=== PATIENT | male | born 1955 | race Caucasian/White ===

== ENCOUNTER → 2021-11-02 12:23 | Outpatient (CLI) | payer MEDICARE, SELFPAY ==
[2021-11-02 12:41] LABS: Add Manual Diff / Slide Review NO; Basophils Absolute Auto 200 /uL (0-100); Basophils Percent Auto 2.4 % (0-2); Eosinophils Absolute Auto 500 /uL (0-450); Hemoglobin 13.6 g/dL (13.5-17.5); Lymphocytes Absolute Auto 1400 /uL (1100-4500); Lymphocytes Percent Auto 15.9 % (25-40); Mean Corpuscular HGB Conc 33.3 % (30-36); Mean Corpuscular Volume 99.1 fL (80-100); Monocytes Absolute Auto 600 /uL (0-900); Monocytes Percent Auto 6.4 % (3-14); Neutrophils Absolute Auto 6400 /uL (1500-7000); Neutrophils Percent Auto 70.3 % (50-75); Platelet Count 405 X10^3/uL (150-400); Red Blood Cell Count 4.14 X10^6/uL (4.5-5.9); Red Cell Distribution Width 16.4 % (11.6-14.8)
[2021-11-02 13:17] LABS: HEMOLYSIS < 15 (0-50); Iron 67 ug/dL (49-181)
[2021-11-02 13:21] LABS: Alanine Aminotransferase 7 IU/L (<50); Albumin Globulin Ratio 1.3 (1.0-2.8); Alkaline Phosphatase 108 U/L (38-126); Aspartate Aminotransferase 22 IU/L (17-59); BUN Creatinine Ratio 15.5 (6-22); Bilirubin Total 0.6 mg/dL (0.2-1.3); Blood Urea Nitrogen 13 mg/dL (9-20); Calcium 8.8 mg/dL (8.4-10.2); Carbon Dioxide 27 mmol/L (22-32); Chloride 106 mmol/L (98-107); Cholesterol 166 mg/dL (140-199); Estimated Glomerular Filt Rate > 60 mL/min (>60); Globulin 3.2 g/dL (1.7-4.1); Glucose 87 mg/dL (80-110); HDL Cholesterol 47 mg/dL (40-60); HEMOLYSIS < 15 (0-50); LDL Cholesterol Calculated 105 mg/dL (<100); Sodium 138 mmol/L (137-145); Total Protein 7.2 g/dL (6.3-8.2); Triglycerides 69 mg/dL (35-150)
[2021-11-02 13:22] LABS: Potassium 4.1 mmol/L (3.4-5.1)
[2021-11-02 13:30] LABS: Percent Iron Saturation 24 % (20-50); Total Iron Binding Capacity 282 ug/dL (261-462); Transferrin 200 mg/dL (206-381)
[2021-11-02 13:48] LABS: Prostate Specific Antigen Scrn 1.74 ng/mL (0.1-4.0)
== END ==
PROVIDERS: PCP Internal Medicine; Referring Provider Internal Medicine; Visit Provider Internal Medicine
DX: I10 Essential (primary) hypertension (principal); Z12.5 Encounter for screening for malignant neoplasm of prostate; D64.9 Anemia, unspecified
CPT/HCPCS: 36415; 80053; 80061; 83540; 83550; 85025; G0103

== ENCOUNTER → 2022-12-20 12:15 | Outpatient (CLI) | payer MEDICARE, SELFPAY ==
[2022-12-20 12:57] LABS: Add Manual Diff / Slide Review NO; Basophils Absolute Auto 300 /uL (0-100); Basophils Percent Auto 3.3 % (0-2); Eosinophils Absolute Auto 400 /uL (0-450); Eosinophils Percent Auto 5.3 % (2-4); Hematocrit 44.2 % (41-53); Hemoglobin 14.7 g/dL (13.5-17.5); Lymphocytes Absolute Auto 1600 /uL (1100-4500); Lymphocytes Percent Auto 19.5 % (25-40); Mean Corpuscular HGB Conc 33.4 % (30-36); Mean Corpuscular Hemoglobin 34.3 PG (26-34); Mean Corpuscular Volume 102.9 fL (80-100); Monocytes Absolute Auto 500 /uL (0-900); Monocytes Percent Auto 6.5 % (3-14); Neutrophils Absolute Auto 5400 /uL (1500-7000); Neutrophils Percent Auto 65.4 % (50-75); Platelet Count 450 X10^3/uL (150-400); Red Cell Distribution Width 16.4 % (11.6-14.8); White Blood Cell Count 8.2 X10^3/uL (4.5-11.0)
[2022-12-20 13:18] LABS: Alanine Aminotransferase 10 IU/L (<50); Albumin 4.3 g/dL (3.5-5.0); Albumin Globulin Ratio 1.3 (1.0-2.8); Alkaline Phosphatase 87 U/L (38-126); Aspartate Aminotransferase 24 IU/L (17-59); BUN Creatinine Ratio 23.6 (6-22); Bilirubin Total 0.7 mg/dL (0.2-1.3); Blood Urea Nitrogen 17 mg/dL (9-20); Calcium 9.7 mg/dL (8.4-10.2); Carbon Dioxide 27 mmol/L (22-32); Chloride 102 mmol/L (98-107); Cholesterol 152 mg/dL (140-199); Estimated Glomerular Filt Rate > 60 mL/min (>60); Globulin 3.2 g/dL (1.7-4.1); Glucose 88 mg/dL (80-110); HDL Cholesterol 46 mg/dL (40-60); HEMOLYSIS < 15 (0-50); LDL Cholesterol Calculated 97 mg/dL (<100); Potassium 4.9 mmol/L (3.4-5.1); Sodium 137 mmol/L (137-145); Total Protein 7.5 g/dL (6.3-8.2); Triglycerides 47 mg/dL (35-150)
[2022-12-20 13:46] LABS: Prostate Specific Antigen Scrn 1.82 ng/mL (0.1-4.0); TSH w/ Reflex to FT4 1.13 uIU/mL (0.47-4.68)
== END ==
PROVIDERS: PCP Internal Medicine; Referring Provider Internal Medicine; Visit Provider Internal Medicine
DX: D64.9 Anemia, unspecified (principal); I10 Essential (primary) hypertension; Z12.5 Encounter for screening for malignant neoplasm of prostate; N40.1 Benign prostatic hyperplasia with lower urinary tract symptoms; N13.8 Other obstructive and reflux uropathy
CPT/HCPCS: 36415; 80053; 80061; 84443; 85025; G0103

== ENCOUNTER → 2023-07-22 16:19 | Outpatient (CLI) | payer MEDICARE, SELFPAY ==
[2023-07-22 18:21] LABS: Add Manual Diff / Slide Review NO; Basophils Absolute Auto 300 /uL (0-100); Basophils Percent Auto 3.2 % (0-2); Eosinophils Absolute Auto 600 /uL (0-450); Eosinophils Percent Auto 6.2 % (2-4); Hematocrit 47.7 % (41-53); Hemoglobin 15.8 g/dL (13.5-17.5); Lymphocytes Absolute Auto 1500 /uL (1100-4500); Lymphocytes Percent Auto 15.7 % (25-40); Mean Corpuscular HGB Conc 33.1 % (30-36); Mean Corpuscular Hemoglobin 33.4 PG (26-34); Monocytes Absolute Auto 400 /uL (0-900); Monocytes Percent Auto 4.1 % (3-14); Neutrophils Absolute Auto 6800 /uL (1500-7000); Neutrophils Percent Auto 70.8 % (50-75); Platelet Count 486 X10^3/uL (150-400); Red Blood Cell Count 4.72 X10^6/uL (4.5-5.9); Red Cell Distribution Width 15.8 % (11.6-14.8); White Blood Cell Count 9.6 X10^3/uL (4.5-11.0)
[2023-07-22 18:46] LABS: Erythrocyte Sedimentation Rate 4 MM/HR (0-15)
[2023-07-22 19:33] LABS: TSH w/ Reflex to FT4 1.28 uIU/mL (0.47-4.68)
[2023-07-22 19:41] LABS: Alanine Aminotransferase 9 IU/L (<50); Albumin 4.4 g/dL (3.5-5.0); Albumin Globulin Ratio 1.3 (1.0-2.8); Alkaline Phosphatase 98 U/L (38-126); Aspartate Aminotransferase 30 IU/L (17-59); BUN Creatinine Ratio 34.2 (6-22); Bilirubin Total 0.5 mg/dL (0.2-1.3); Blood Urea Nitrogen 25 mg/dL (9-20); C-Reactive Protein Quant < 0.5 mg/dL (<1.0); Calcium 9.4 mg/dL (8.4-10.2); Carbon Dioxide 27 mmol/L (22-32); Chloride 108 mmol/L (98-107); Estimated Glomerular Filt Rate > 60 mL/min (>60); Globulin 3.4 g/dL (1.7-4.1); Glucose 120 mg/dL (80-110); HEMOLYSIS < 15 (0-50); Potassium 3.9 mmol/L (3.4-5.1); Sodium 140 mmol/L (137-145); Total Protein 7.8 g/dL (6.3-8.2)
[2023-07-22 20:29] LABS: Vitamin B12 699 pg/mL (239-931)
[2023-07-22 21:41] LABS: Folate 8.3 ng/mL (2.76-20.0)
== END ==
PROVIDERS: PCP Internal Medicine; Referring Provider Internal Medicine; Visit Provider Internal Medicine
DX: I10 Essential (primary) hypertension (principal); J45.909 Unspecified asthma, uncomplicated; D64.9 Anemia, unspecified
CPT/HCPCS: 36415; 80053; 82607; 82746; 84443; 85025; 85651; 86140

== ENCOUNTER → 2024-05-10 16:32 | Outpatient (CLI) | payer MEDICARE, SELFPAY ==
[2024-05-10 17:10] LABS: Hematocrit 59.8 % (41-53); Hemoglobin 18.9 g/dL (13.5-17.5); Mean Corpuscular HGB Conc 31.6 % (30-36); Mean Corpuscular Hemoglobin 27.6 PG (26-34); Mean Corpuscular Volume 87.4 fL (80-100); Platelet Count 556 X10^3/uL (150-400); Red Blood Cell Count 6.85 X10^6/uL (4.5-5.9); White Blood Cell Count 13.2 X10^3/uL (4.5-11.0)
[2024-05-10 17:21] LABS: Add Manual Diff / Slide Review YES
[2024-05-10 17:30] LABS: Creatine Kinase 45 U/L (55-170); HEMOLYSIS 19 (0-50); Sodium 137 mmol/L (137-145)
[2024-05-10 17:31] LABS: Alanine Aminotransferase 10 IU/L (<50); Albumin 4.4 g/dL (3.5-5.0); Albumin Globulin Ratio 1.1 (1.0-2.8); Alkaline Phosphatase 108 U/L (38-126); Aspartate Aminotransferase 33 IU/L (17-59); BUN Creatinine Ratio 19.5 (6-22); Bilirubin Total 0.8 mg/dL (0.2-1.3); Blood Urea Nitrogen 17 mg/dL (9-20); C-Reactive Protein Quant < 0.5 mg/dL (<1.0); Calcium 9.2 mg/dL (8.4-10.2); Carbon Dioxide 27 mmol/L (22-32); Chloride 103 mmol/L (98-107); Estimated Glomerular Filt Rate > 60 mL/min (>60); Glucose 81 mg/dL (80-110); Total Protein 8.4 g/dL (6.3-8.2)
[2024-05-10 17:45] LABS: Anisocytosis 1+
[2024-05-10 17:48] LABS: Erythrocyte Sedimentation Rate 1 MM/HR (0-15)
[2024-05-10 17:59] LABS: TSH w/ Reflex to FT4 1.12 uIU/mL (0.47-4.68)
[2024-05-17 19:09] LABS: Percent Free Testosterone 3.09 % (1.50-4.20); Testosterone Free 13.02 ng/dL (5.00-21.00); Testosterone Total 421.3 ng/dL (264.0-916.0)
== END ==
PROVIDERS: PCP Internal Medicine; Referring Provider Internal Medicine; Visit Provider Internal Medicine
DX: I10 Essential (primary) hypertension (principal); R63.4 Abnormal weight loss; R53.83 Other fatigue; R53.1 Weakness; G72.9 Myopathy, unspecified
CPT/HCPCS: 36415; 80053; 82550; 84402; 84403; 84443; 85025; 85651; 86140

== ENCOUNTER 2024-06-06 09:30 | Emergency (ER) | payer MEDICARE, SELFPAY ==
[2024-06-06] VITALS (11 sets, daily range): BP systolic 147–180; BP diastolic 92–102; PULSE 76–90; RESP 16–31; TEMP 36.5; O2SAT 92–96; BMI 29.0
--- NOTE | 2024-06-06 10:00 | EKG_ITS ---
[id number] [place] [address] Test Date: 2024-06-06 Pat Name: Kris Byrnes Department: [facility] Room: Gender: Male Dietary Worker: FRANCESCA : 1955 Requested By: Order Number: [id number] Reading MD: Bill Chappell Measurements Intervals [place] Rate: 80 P: 9 NH: 178 QRS: -75 QRSD: 114 T: 34 QT: 418 QTc: 482 Interpretive Statements Sinus rhythm with premature atrial complexes Pulmonary disease pattern Left anterior fascicular block Minimal voltage criteria for LVH, may be normal variant ( [place] product ) Nonspecific ST abnormality Prolonged QT Electronically Signed On 06-07-2024 8:45:51 PDT by Bill Chappell
--- NOTE | 2024-06-06 10:31 | ED.URI ---
HPI - URI/Sore Throat General Chief Complaint: Upper Respiratory Symptoms Stated Complaint: SOB Time Seen by Provider: 06/06/24 10:29 History of Present Illness HPI Narrative: 69-year-old male history of asthma hypertension new diagnosis of polycythemia vera presenting to day with upper respiratory like symptoms. He reports that for the last to 5 days he has had some increasing shortness of breath. He has been using his nebulizer and inhaler 1 to 2 times a day does not really report significant relief. Reports he coughs every time he takes a deep breath. Feels like he is hot but does not actually have a temperature. No real sore throat. He was scheduled for his 1st phlebotomy treatment tomorrow. He denies any abdominal pain nausea vomiting or other symptoms Related Data Home Medications Medication Instructions Recorded Confirmed melatonin 5 mg tablet 10 mg PO BEDTIME 01/11/22 05/10/24 aspirin 81 mg tablet,delayed 81 mg PO DAILY 12/20/22 05/10/24 release (Radha Low Dose Aspirin) fluticasone propionate 50 1 spray intranasal DAILY PRN nasal 12/20/22 05/10/24 mcg/actuation nasal congestion spray,suspension (Aller-Erick) magnesium citrate 2 cap PO BEDTIME 05/10/24 05/10/24 Previous Rx's Medication Instructions Recorded albuterol sulfate 90 mcg/actuation 1 inh inhalation DAILY PRN 08/17/21 aerosol inhaler shortness of breath or wheezing #8.5 grams losartan 100 mg tablet 100 mg PO DAILY #90 tabs 09/18/23 spironolactone 25 mg tablet 25 mg PO DAILY #90 tabs 09/18/23 tamsulosin 0.4 mg capsule 0.8 mg (2 x 0.4 mg) PO DAILY #180 09/18/23 caps amlodipine 5 mg tablet 5 mg PO DAILY #90 tabs 05/10/24 albuterol sulfate 2.5 mg/0.5 mL 5 mg inhalation QID PRN shortness 06/06/24 solution for nebulization of breath or wheezing #30 ea amoxicillin 500 mg capsule 1,000 mg (2 x 500 mg) PO TID 5 06/06/24 days #30 caps azithromycin 250 mg tablet See Rx Instructions PO .COMPLEX #6 06/06/24 tabs prednisone 20 mg tablet 40 mg (2 x 20 mg) PO DAILY #10 tabs 06/06/24 Allergies Allergy/AdvReac Type Severity Reaction Status Date / Time No Known Drug Allergies Allergy Verified 05/10/24 16:03 Patient History Medical History (Updated 06/06/24 @ 14:02 by Diya Pena DO) Iron deficiency Anemia Hearing loss BPH w urinary obs/LUTS Asthma Essential hypertension Surgical History (Updated 08/17/21 @ 15:43 by Sukh Willard MD) H/O umbilical hernia repair Social History Smoking Status: Never smoker Smoking Status: Never smoker Exam Initial Vital Signs Initial Vital Signs: Vital Signs Pulse Rate 80 06/06/24 09:46 Blood Pressure 166/102 H 06/06/24 09:46 Pulse Oximetry 96 06/06/24 09:46 GENERAL: Alert 69-year-old male with flushed face HEENT: Head atraumatic,EOMI, pupils reactive, face symmetric, moist mucous membranes CARDIOVASCULAR: Regular rate and rhythm without murmurs, rubs or gallops. RESPIRATORY: No significant wheezing no real conversational dyspnea but he does have some shallow breaths ABDOMEN: Soft, nontender. Normoactive bowel sounds all 4 quadrants. No guarding or rebound. EXTREMITIES: Normal range of motion, no clubbing or edema. Neurovascularly intact NEUROLOGICAL: Alert and oriented x4.Normal gait and speech. Cranial nerves II through XII grossly intact. SKIN: Warm, dry, no laceration, no petechiae, no rashes or lesions. Course Orders Ordered: ED Orders 06/06/24 09:58 Covid-19 + FLU A/B + RSV - PCR Stat 06/06/24 10:00 EKG-12 Lead Stat 06/06/24 10:43 Chest [XR chest 2V] Stat 06/06/24 11:42 BNP [NT-proBNP (BNP-Adult 18+)] Stat CBC Auto Diff [Complete Blood Count AUTO DIFF] Stat CMP [Comprehensive Metabolic Panel] Stat Troponin & CK Cardiac Panel Stat 06/06/24 12:58 CT angio chest PE protocol Stat Discontinued Medications Albuterol/Ipratropium (Albuterol/Ipratropium 3 Ml Ampul) 3 ml INH NOW ONE Stop: 06/06/24 10:44 Last Admin: 06/06/24 10:51 Dose: 3 ml Documented By: WESTON Methylprednisolone (Methylprednisolone 125 Mg/2 Ml Vial) 125 mg IV NOW ONE Stop: 06/06/24 10:44 Last Admin: 06/06/24 11:31 Dose: 125 mg Documented By: DAMARIS Vital Signs Vital signs: Vital Signs - 8 hr 06/06/24 09:46 06/06/24 09:46 06/06/24 09:50 Temperature 97.7 F Pulse Rate 80 80 Respiratory Rate 16 Blood Pressure 166/102 H 166/102 H Pulse Oximetry 96 95 Oxygen Delivery Method Room Air Oxygen Flow Rate 06/06/24 10:00 06/06/24 10:00 06/06/24 10:30 Temperature Pulse Rate 77 78 Respiratory Rate 24 28 H Blood Pressure 147/93 H Pulse Oximetry 92 93 Oxygen Delivery Method Oxygen Flow Rate 06/06/24 10:30 06/06/24 10:51 06/06/24 11:00 Temperature Pulse Rate 78 77 Respiratory Rate 16 22 Blood Pressure 162/92 H Pulse Oximetry 94 92 Oxygen Delivery Method Room Air Oxygen Flow Rate 06/06/24 11:30 06/06/24 12:00 06/06/24 12:30 Temperature Pulse Rate 81 80 76 Respiratory Rate 31 H 23 21 Blood Pressure Pulse Oximetry 94 92 93 Oxygen Delivery Method Oxygen Flow Rate 06/06/24 13:00 06/06/24 13:31 Temperature Pulse Rate 82 90 Respiratory Rate 28 H Blood Pressure 180/92 H Pulse Oximetry 92 95 Oxygen Delivery Method Nasal Cannula Oxygen Flow Rate 2 MDM - URI/Sore Throat Lab Data 06/06/24 11:42 06/06/24 11:42 Labs: Lab Results 06/06/24 06/06/24 Range/Units 09:58 11:42 WBC 17.3 H (4.5-11.0) X10^3/uL RBC 7.19 H (4.5-5.9) X10^6/uL Hgb 19.7 H (13.5-17.5) g/dL Hct 61.0 H* (41-53) % MCV 84.9 (80-100) fL MCH 27.4 (26-34) PG MCHC 32.3 (30-36) % RDW 19.8 H (11.6-14.8) % Plt Count 611 H (150-400) X10^3/uL Neut % (Auto) Not Reportable Lymph % (Auto) Not Reportable [place] % (Auto) Not Reportable Eos % (Auto) Not Reportable Baso % (Auto) Not Reportable Lymph # (Auto) Not Reportable [place] # (Auto) Not Reportable Baso # (Auto) Not Reportable Total Counted 100 Seg Neutrophils % 80.0 H (38-70) % Lymphocytes % (Manual) 6.0 L (25-45) % Monocytes % (Manual) 5.0 (2-11) % Eosinophils % (Manual) 6.0 H (2-4) % Basophils % (Manual) 3.0 H (0-1) % Neutrophils # (Manual) 62639 H (7005-4295) /uL Platelet Estimate RBC Morphology Normal morphology Sodium 136 L (137-145) mmol/L Potassium 4.4 (3.4-5.1) mmol/L Chloride 104 (98-107) mmol/L Carbon Dioxide 22 (22-32) mmol/L BUN 17 (9-20) mg/dL Creatinine 0.77 (0.66-1.25) mg/dL Estimated GFR > 60 (>60) mL/min BUN/Creatinine Ratio 22.1 H (6-22) Glucose 121 H (80-110) mg/dL Calcium 9.3 (8.4-10.2) mg/dL Total Bilirubin 1.1 (0.2-1.3) mg/dL AST 46 (17-59) IU/L ALT 18 (<50) IU/L Alkaline Phosphatase 116 (38-126) U/L Total Creatine Kinase 24 L (55-170) U/L Troponin I < 0.012 (0.01-0.034) ng/mL NT-Pro-B Natriuret Pep 111 (<125) pg/mL Total Protein 8.2 (6.3-8.2) g/dL Albumin 4.2 (3.5-5.0) g/dL Globulin 4.0 (1.7-4.1) g/dL Albumin/Globulin Ratio 1.1 (1.0-2.8) SARS-CoV-2 (PCR) Negative (Negative) Influenza A (RT-PCR) Flu a negative (NEGATIVE) Influenza B (RT-PCR) Flu b negative (NEGATIVE) RSV (PCR) Negative (Negative) Imaging Data Chest x-ray: Radiologist's Impression: PROCEDURE: XR CHEST 2V INDICATIONS: cough TECHNIQUE: 2 views of the chest were acquired. COMPARISON: None. FINDINGS: Surgical changes and devices: None. Lungs and pleura: Lungs are clear. No pleural effusions or pneumothorax. Mediastinum: Mediastinal contours are normal. Heart size is normal. Pulmonary vasculature is prominent. Bones and chest wall: No suspicious bony abnormalities. Soft tissues appear unremarkable. IMPRESSION: Pulmonary vascular prominence without gonzales pulmonary edema. Dictated by: Karlene Ramos M.D. on 06/06/2024 at 10:14 CT scan - chest: Radiologist's Impression: PROCEDURE: CT ANGIO CHEST PE PROTOCOL INDICATIONS: short of breath polycythemia vera TECHNIQUE: After the administration of intravenous contrast, 2 mm thick sections acquired from the pulmonary apices to the posterior costophrenic angles. 3-dimensional maximum intensity projection (MIP) coronal and sagittal reformats were then acquired through the thorax. For radiation dose reduction, the following was used: automated exposure control, adjustment of mA and/or kV according to patient size. COMPARISON: None. FINDINGS: Image quality: Diagnostic. Pulmonary arteries: Pulmonary arteries are normal in size, and demonstrate no intraluminal filling defects to suggest central pulmonary embolism. Lower Neck: No enlarged lymph nodes. Thyroid: No thyroid nodules which require sonographic follow up, per consensus guidelines. Axillae: No enlarged lymph nodes. Chest Wall: Unremarkable. Bones: Unremarkable. Lungs and Pleura: No pneumothorax or pleural effusions. No consolidation or suspicious nodules. Heart: Heart size is normal. No pericardial effusion. Thoracic Vessels: No aortic aneurysm. Mediastinum and Clarice: No enlarged lymph nodes. Esophagus: No wall thickening. No hiatal hernia. Upper Abdomen: Visualized upper abdomen solid organs and bowel loops appear normal. IMPRESSION: No pulmonary embolus. No acute cardiopulmonary process. Dictated by: Karlene Ramos M.D. on 06/06/2024 at 12:46 ECG Data Attestation: I personally reviewed and interpreted this ECG as follows: Interpretation: Sinus rhythm rate 80 MO interval 178 QRS 114 QTC 482 artifact noted no acute ST changes MDM Narrative Medical decision making narrative: 69-year-old male presenting today with increasing shortness of breath the last 5 days. Having upper respiratory like symptoms. He does have a history of asthma. He has been doing nebulizer treatments at home without any significant improvement. He ultimately was put on 1-2 L of oxygen while sleeping. Family reports that he does wear CPAP at night. O2 level while sitting upright is anywhere 93-95%. Lung sounds are clear no real wheezing. He has no peripheral edema. Blood work has been reviewed WBC 17.3 previously 13.2, hemoglobin 19.7 previously 18.9 hematocrit 61 previously 59.8 electrolytes are stable without any CHILO troponin negative BNP 111 imaging reviewed x-ray shows possible pulmonary edema CT angio no pulmonary embolism patient having upper respiratory like symptoms ongoing for about 5 days. He does have some leukocytosis of 17. Chest x-ray did show some possible pulmonary edema however he was no evidence of fluid overload he does not have any evidence of sepsis. CBC does look similar to prior however increase in white count. He was scheduled for phlebotomy tomorrow. At this time we will go ahead and treat for asthma exacerbation and atypical pneumonia. He was given Solu-Medrol here in the ED. He has not requiring oxygen at baseline it was only while sleeping. At this time family and patient agree with plan. Discharge Plan Departure Patient Disposition: Home Clinical Impression: Pneumonia Instructions: DI for Pneumonia -- Adult Activity Restrictions/Additional Instructions: *You have been diagnosed with pneumonia *What to do: At this time workup in the emergency department is overall reassuring. No evidence of blood clot I encourage you to get your procedure done tomorrow *Continue to take medications as directed Amoxicillin 1000 mg 3 times a day for 5 days Azithromycin take as directed for 5 days Prednisone 40 mg once a day for 5 days *Follow up with your primary care provider in 2-3 days or call [phone] *Return to ER if you should have increasing chest pain shortness of breath weakness [or] any new, worsening or concerning symptoms numb Prescriptions: New amoxicillin 500 mg capsule 1,000 mg PO TID 5 Days Qty: 30 0RF azithromycin 250 mg tablet See Rx Instructions PO .COMPLEX Qty: 6 0RF Rx Instructions: For 250 mg dose pack: take 500 mg today (day 1), then 250 mg for 4 days (days 2-5) prednisone 20 mg tablet 40 mg PO DAILY Qty: 10 0RF albuterol sulfate 2.5 mg/0.5 mL solution for nebulization 5 mg inhalation QID PRN (Reason: shortness of breath or wheezing) Qty: 30 0RF No Action losartan 100 mg tablet 100 mg PO DAILY Qty: 90 2RF tamsulosin 0.4 mg capsule 0.8 mg PO DAILY Qty: 180 2RF spironolactone 25 mg tablet 25 mg PO DAILY Qty: 90 2RF albuterol sulfate 90 mcg/actuation HFA aerosol inhaler 1 inh inhalation DAILY PRN (Reason: shortness of breath or wheezing) Qty: 8.5 3RF melatonin 5 mg tablet 10 mg PO BEDTIME aspirin [Radha Low Dose Aspirin] 81 mg tablet,delayed release (DR/EC) 81 mg PO DAILY fluticasone propionate [Aller-Erick] 50 mcg/actuation spray,suspension 1 spray intranasal DAILY PRN (Reason: nasal congestion) Rx Instructions: administer into each nostril magnesium citrate 2 cap PO BEDTIME amlodipine 5 mg tablet 5 mg PO DAILY Qty: 90 3RF Referrals: Sukh Willard MD [Primary Care Provider] - Stand Alone Forms: Patient Portal/API/Survey
[2024-06-06 10:42] LABS: Influenza A - CEPHEID Flu A NEGATIVE (NEGATIVE); Influenza B - CEPHEID Flu B NEGATIVE (NEGATIVE); Respiratory Syncytial Virus Negative (Negative)
--- NOTE | 2024-06-06 10:43 | DI.RAD.S_ITS ---
PROCEDURE: XR CHEST 2V INDICATIONS: cough TECHNIQUE: 2 views of the chest were acquired. COMPARISON: None. FINDINGS: Surgical changes and devices: None. Lungs and pleura: Lungs are clear. No pleural effusions or pneumothorax. Mediastinum: Mediastinal contours are normal. Heart size is normal. Pulmonary vasculature is prominent. Bones and chest wall: No suspicious bony abnormalities. Soft tissues appear unremarkable. IMPRESSION: Pulmonary vascular prominence without gonzales pulmonary edema. Dictated by: Karlene Ramos M.D. on 06/06/2024 at 10:14 Approved by: Karlene Ramos M.D. on 06/06/2024 at 10:16
[2024-06-06] MEDS: ALBUTEROL/IPRATROPIUM 3 ML AMPUL INH (10:51)
[2024-06-06 11:11] LABS: COVID-19 CEPHEID 4-PLEX PCR Negative (Negative)
[2024-06-06] MEDS: methylPREDNISolone 125 MG/2 ML VIAL IV (11:31)
[2024-06-06 11:55] LABS: Hemoglobin 19.7 g/dL (13.5-17.5); Mean Corpuscular HGB Conc 32.3 % (30-36); Mean Corpuscular Hemoglobin 27.4 PG (26-34); Mean Corpuscular Volume 84.9 fL (80-100); Platelet Count 611 X10^3/uL (150-400); Red Cell Distribution Width 19.8 % (11.6-14.8); White Blood Cell Count 17.3 X10^3/uL (4.5-11.0)
[2024-06-06 11:58] LABS: Red Blood Cell Count 7.19 X10^6/uL (4.5-5.9)
[2024-06-06 12:00] LABS: Add Manual Diff / Slide Review YES
[2024-06-06 12:03] LABS: Alanine Aminotransferase 18 IU/L (<50); Albumin 4.2 g/dL (3.5-5.0); Albumin Globulin Ratio 1.1 (1.0-2.8); Alkaline Phosphatase 116 U/L (38-126); Aspartate Aminotransferase 46 IU/L (17-59); BUN Creatinine Ratio 22.1 (6-22); Bilirubin Total 1.1 mg/dL (0.2-1.3); Blood Urea Nitrogen 17 mg/dL (9-20); Calcium 9.3 mg/dL (8.4-10.2); Carbon Dioxide 22 mmol/L (22-32); Chloride 104 mmol/L (98-107); Creatine Kinase 24 U/L (55-170); Estimated Glomerular Filt Rate > 60 mL/min (>60); Glucose 121 mg/dL (80-110); HEMOLYSIS 30 (0-50); Potassium 4.4 mmol/L (3.4-5.1); Sodium 136 mmol/L (137-145); Total Protein 8.2 g/dL (6.3-8.2)
[2024-06-06 12:07] LABS: Neutrophils Absolute Manual 13840 /uL (3000-5900); Total Cells Counted 100
[2024-06-06 12:10] LABS: RBC Morphology Normal Morphology
[2024-06-06 12:15] LABS: NT-proBNP (BNP-Adult 18+) 111 pg/mL (<125); Troponin I < 0.012 ng/mL (0.01-0.034)
--- NOTE | 2024-06-06 12:58 | DI.CT.S_ITS ---
PROCEDURE: CT ANGIO CHEST PE PROTOCOL INDICATIONS: short of breath polycythemia vera TECHNIQUE: After the administration of intravenous contrast, 2 mm thick sections acquired from the pulmonary apices to the posterior costophrenic angles. 3-dimensional maximum intensity projection (MIP) coronal and sagittal reformats were then acquired through the thorax. For radiation dose reduction, the following was used: automated exposure control, adjustment of mA and/or kV according to patient size. COMPARISON: None. FINDINGS: Image quality: Diagnostic. Pulmonary arteries: Pulmonary arteries are normal in size, and demonstrate no intraluminal filling defects to suggest central pulmonary embolism. Lower Neck: No enlarged lymph nodes. Thyroid: No thyroid nodules which require sonographic follow up, per consensus guidelines. Axillae: No enlarged lymph nodes. Chest Wall: Unremarkable. Bones: Unremarkable. Lungs and Pleura: No pneumothorax or pleural effusions. No consolidation or suspicious nodules. Heart: Heart size is normal. No pericardial effusion. Thoracic Vessels: No aortic aneurysm. Mediastinum and Clarice: No enlarged lymph nodes. Esophagus: No wall thickening. No hiatal hernia. Upper Abdomen: Visualized upper abdomen solid organs and bowel loops appear normal. IMPRESSION: No pulmonary embolus. No acute cardiopulmonary process. Dictated by: Karlene Ramos M.D. on 06/06/2024 at 12:46 Approved by: Karlene Ramos M.D. on 06/06/2024 at 12:50
--- NOTE | 2024-06-06 15:01 | PC.NURSE ---
Karlene, pharmacist from [facility] called to verify prescription. She was concerned that the albuterol rx was written as a concentrate which required diluting with saline. I talked to Dr. Pena who states OK to substitute with albuterol pre mix that is ready to use. Karlene confirmed the substitution.
== END 2024-06-06 14:27 | disposition home or self-care (01) ==
PROVIDERS: Emergency Provider Emergency Medicine; PCP Internal Medicine
DX: J18.9 Pneumonia, unspecified organism (principal); R05.9 Cough, unspecified
CPT/HCPCS: 0241U; 36415; 71046; 71275; 80053; 82550; 83880; 84484; 85007; 85025; 93005; 94640; 96374; 99284; J2919; Q9967